=== PATIENT | female | born 1980 | race Two or more races ===

== ENCOUNTER 2022-03-15 17:12 | Emergency (ER) | payer SELFPAY ==
[~2022-03-15] VITALS: Ht 160 cm; Wt 69.9 kg
--- NOTE | 2022-03-15 17:18 | NUR ---
ARRIVED VIA RESCUE WITH OD,TX IN FIELD BY RESCUE WITH NARCAN. A,A AND O X 4.VSS.PLACED ON MONITOR AND MD TO SEE. MEDIC INSERTED # 20 G RT WRIST.,PER CM ST AT 109.NO ACUTE DISTRESS.
[2022-03-15 19:00] LABS: CALCIUM, SERUM 8.9 mg/dL (8.5-10.1); CARBON DIOXIDE 23 mmol/L (21-32); CHLORIDE 100 mmol/L (98-107); CREATININE 1.2 mg/dL (0.6-1.3); GLUCOSE 207 mg/dL (74-106); POTASSIUM 3.6 mmol/L (3.5-5.1); SODIUM SERUM 136 mmol/L (136-145); UREA NITROGEN, BLOOD 17 mg/dL (7-18)
[2022-03-15 19:15] LABS: ALANINE AMINOTRANSFERASE 26 U/L (12-78); ALBUMIN 3.5 g/dL (3.4-5.0); ALCOHOL, BLOOD < 3 mg/dL (0-0); ALKALINE PHOSPHATASE 92 U/L (46-116); ASPARTATE AMINOTRANSFERASE 29 U/L (15-37); BILIRUBIN,DIRECT 0.1 mg/dL (0.0-0.2); BILIRUBIN,TOTAL 0.4 mg/dL (0.2-1.0); TOTAL PROTEIN, SERUM 8.2 g/dL (6.4-8.2)
--- NOTE | 2022-03-15 19:15 | NUR ---
LAB RESULTS PENDING, POTASSIUM WNL, PARTIAL RESULTS NOTED.
--- NOTE | 2022-03-15 19:19 | NUR ---
REPORTED OFF TO INCOMING RN
--- NOTE | 2022-03-15 19:20 | NUR ---
CHEST X-RAY PENDING.
--- NOTE | 2022-03-15 19:21 | NUR ---
ERROR,NO CHEST X-RAY ORDERED.
--- NOTE | 2022-03-15 19:40 | NUR ---
REPORTED OFF TO INCOMING RN ASSUMING CARE
[2022-03-15 19:58] LABS: BASOPHILS % (AUTO) 0.1 % (0.0-2.0); EOSINOPHILS % (AUTO) 0.3 % (0.0-6.0); HEMATOCRIT 42 % (33-45); LYMPHOCYTES # (AUTO) 1.1 K/uL (0.8-4.8); MEAN CORPUSCULAR HGB CONC 33 g/dl (31.0-36.0); MEAN CORPUSCULAR VOLUME 84 fL (82-100); MONOCYTES # (AUTO) 0.4 K/uL (0.1-1.30); MONOCYTES % (AUTO) 3.4 % (2.0-12.0); NEUTROPHILS # (AUTO) 10.3 K/uL (1.8-8.9); NEUTROPHILS % (AUTO) 87.2 % (43.0-81.0); PLATELET COUNT (AUTO) 410 K/uL (150-450); RED BLOOD CELL COUNT(AUTO) 5.05 MIL/uL (4.0-5.2); WHITE BLOOD COUNT (AUTO) 11.8 K/uL (4.3-11.0)
[2022-03-15] MEDS ORDERED: NALO4SPR BNOSTRILS (20:26)
--- NOTE | 2022-03-15 20:40 | NUR ---
Patient discharged to home in stable condition. Written and verbal after care instructions given. Patient verbalizes understanding of instruction.
--- NOTE | 2022-03-15 20:40 | NUR ---
PROVIDED PT WITH FOOD AND CLOTHES
--- NOTE | 2022-03-15 20:40 | NUR ---
IV removed. Catheter intact and site benign. Pressure and 4x4 applied to site. No bleeding noted.
[2022-03-15 21:17] VITALS: BP 136/80
== END 2022-03-15 21:17 | disposition home or self-care (01) ==
LOC: ER 17:17
DX: T40.601A Poisoning by unspecified narcotics, accidental (unintentional), initial encounter (principal); R00.0 Tachycardia, unspecified; Z59.00 Homelessness unspecified; Y92.89 Other specified places as the place of occurrence of the external cause
CPT/HCPCS: 36415; 80048-TC; 80076-TC; 85025-TC; G0480